=== PATIENT | male | born 1975 | race Caucasian/White ===

== ENCOUNTER 2020-11-27 18:54 | Emergency (ER) | payer BC, OTHER, SELFPAY ==
[2020-11-27 19:30] VITALS: BP 150/83; PULSE 73; RESP 18; TEMP 36.8; O2SAT 97; BMI 31.7
[2020-11-27] MEDS: Tetracaine HCl/PF 0.5% Oph Sol 4 ML DROPS 3 DROP EYE-BOTH (20:58)
[2020-11-27] MEDS: Fluorescein Sodium STRIP 1 STRIP EYE-BOTH (20:58)
--- NOTE | 2020-11-27 21:26 | ED_ITS ---
HPI - Eye Problem General Chief complaint: Eye Problems Stated complaint: metal in eye Time Seen by Provider: 11/27/20 20:52 Source: patient Mode of arrival: ambulatory Limitations: no limitations History of Present Illness HPI Narrative: Was doing some core work and grinding and some metal went into his left eye even though he has safety glasses on. Patient denies any blurry vision. Related Data Previous Rx's Medication Instructions Recorded erythromycin 0.5 inch OPHTHALMIC (EYE) QID 7 11/27/20 Days #50 g naproxen 500 mg PO BID PRN #20 tab 11/27/20 Allergies Allergy/AdvReac Type Severity Reaction Status Date / Time No Known Allergies Allergy Verified 11/27/20 19:30 Review of Systems Review of Systems: Yes all other systems are reviewed and are negative Constitutional: Constitutional: Reports as per HPI and Reports no additional constitutional complaints Eyes: Eyes: Reports as per HPI and Reports no additional eye complaints Comments: Right eye redness. Metal in eye ENT: Reports system reviewed and no additional complaints, except as documented and Reports as per HPI Cardiovascular: Cardiovascular: Reports as per HPI and Reports no additional cardiovascular complaints Respiratory: Respiratory: Reports as per HPI and Reports no additional respiratory complaints Gastrointestinal: Gastrointestinal: Reports as per HPI and Reports no additional gastrointestinal complaints Genitourinary: Genitourinary: Reports no additional male genitourinary complaints and Reports as per HPI Musculoskeletal: Musculoskeletal: Reports no additional musculoskeletal complaints and Reports as per HPI Neurologic: Reports system reviewed and no additional complaints, except as documented and Reports as per HPI Psychiatric: Psychiatric: Reports no additional psychiatric complaints and Reports as per HPI [facility] Past Medical History Medical History (Updated 11/28/20 @ 00:01 by Pj Campos) No known health problems Social History Social History Alcohol intake: never Smoked in Last 30 Days: No Use of substances other than those prescribed or required for medical reasons: No Any prior treatment program specific to substance use: No Advance Directives: No Advance Directives Information Provided: Yes Physical Exam Vital Signs: Vital Signs: Last Vital Signs Temp 98.2 F 11/27/20 19:30 Pulse 73 11/27/20 19:30 Resp 18 11/27/20 19:30 BP 150/83 H 11/27/20 19:30 Pulse Ox 97 11/27/20 19:30 Body Mass Index 31.7 Const: General: cooperative, healthy appearing, comfortable, no acute distress, well developed, alert, awake and Physically active Orientation/consciousness: patient oriented x3 HENMT: Head: Yes normal to inspection, Yes No palpable skull fracture present, Yes normocephalic and Yes atraumatic Eyes: Other: Right are normal. Left eye; positive for erythema of conjunctiva. positive for small foreign body on left 1'oclock position of iris. Flourscein dye used and negative for corneal abrasion. Negative for signs of globe rupture Neck: Neck: Yes normal visual inspection, Yes full ROM, Yes no lymphadenopathy, Yes no meningeal signs, Yes trachea midline, Yes supple and No tender Chest: Chest palpation & inspection: normal inspection of the chest and normal palpation of entire chest wall Resp: Effort & Inspection: normal respiratory effort and able to speak in complete sentences Auscultation: clear to auscultation bilaterally Cardio: Jugular venous distension: no JVD Heart sounds: S1 normal heart sound present and S2 normal heart sound present GI: Inspection: Yes normal to inspection and No abdominal wall ecchymosis Palpation (GI): Soft to palpation, not firm, nontender, no guarding and not rigid : General: No CVA tenderness and Yes no CVA tenderness Back/Spine/Pelvis: Back: no CVA tenderness, No CVA tenderness and No back tenderness Skin: General skin exam: no rashes or lesions noted and elasticity normal Neuro: General: patient oriented x3, no meningeal signs and CN's II-XI intact bilaterally Cranial nerves: Yes CN's II-XII intact bilaterally Extrem: General: Yes normal to inspection and Yes full ROM Psych: Appearance: grossly normal, well kempt and not disheveled Course Course Course Narrative: Will do exam. Reevaluation(s) Reevaluation #1: Positive for small object upper iris. Some of the metal were removed but some part of the metal remain on the iris after multiple attempts. Patient states this occurred yesterday. Patient states up-to-date with tetanus. Tetracaine was used to numb the eye. On fluorescein dye was placed in the eye. Negative for corneal abrasion. Negative for leaking to indicate globe rupture. Right eye visual acuity 20/20. Left eye visual acuity 20/40. Patient will be discharged with erythromycin. Patient informed tomorrow to call scanning supervisor for follow-up. Discharge Plan Discharge Clinical Impression: Foreign body in eye Patient Disposition: Home, Self-Care Instructions: Eye Foreign Body (ED) Additional Instructions: Return to the ED immediately for worsening eye pain, swelling, redness, pus discharge, loss of vision, change in vision, or any other concerning symptoms Prescriptions: New erythromycin 5 mg/gram (0.5 %) ointment 0.5 inch ophthalmic (eye) QID 7 Days Qty: 50 RF: 0 naproxen 500 mg tablet 500 mg PO BID PRN (Reason: pain) Qty: 20 RF: 0 Referrals: Negro Messer [Physician] - 2 days (Left eye corneal foreign body ( metal) retained. ) Stand Alone Forms: Work/School Release Interventions: ED Discharge Assessment Last Done: 11/27/20 21:49 Discharge Date/Time: 11/27/20 21:40 Print Language: Citizen Of [place]
== END 2020-11-27 21:40 | disposition home or self-care (01) ==
PROVIDERS: Emergency Provider Emergency Medicine
DX: H57.12 Ocular pain, left eye (principal); T15.02XA Foreign body in cornea, left eye, initial encounter; H44.6 Retained (old) intraocular foreign body, magnetic; X58.XXXA Exposure to other specified factors, initial encounter; Y93.9 Activity, unspecified; Y92.9 Unspecified place or not applicable; Y99.0 Civilian activity done for income or pay; Z79.899 Other long term (current) drug therapy
CPT/HCPCS: 65220; 99284

== ENCOUNTER 2023-04-09 15:39 | Outpatient (AMB) | payer OTHER, SELFPAY ==
[2023-04-09 15:45] VITALS: BP 126/82; PULSE 67; O2SAT 98; BMI 33.7
--- NOTE | 2023-04-09 15:45 | A.OFFPC_ITS ---
Vital Signs 04/09/23 15:45 Height 5 ft 9 in Weight 228 lb BMI 33.7 BP 126/82 Blood Pressure Location Lt brachial Position Sitting Pulse 67 Pulse Source Pulse Oximeter Pulse Oximetry (%) 98 Oxygen Delivery Method Room Air Intake Visit Reasons: new patient follow up Associate Research Scientist Required: No Allergies shrimp Allergy (Intermediate, Verified 04/09/23 16:18) Anaphylaxis Medication List - Last Reconciled 04/09/23 by MANNY Crawford No Known Home Meds Tobacco use date assessed: 04/09/23 Dental Screening Dental Screen Date: 04/09/23 Did you have a dental visit in the last 12 months?: Yes Did you have a dental problem in the last 6 months where you did not have access to dental care?: No Was dental information given to patient?: Patient has dentist HPI new patient follow up HPI Details Patient is a 47-year-old male who presents today to [facility] care. Reports previous PCP more than 10 years ago. Medical history significant for obesity. Patient reports tetanus vaccine in 2008 and he would like to hold off on the vaccine today. Eye exam 10/2022. Up-to-date with dentist visit. Today we discussed patient's need for colon cancer screening. 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 Denies concerns at this visit. [facility] Medical History Knee pain, right No known health problems Surgical History No pertinent past surgical history Family History Mother No problems noted. Father No problems noted. Social History Housing: Apartment Alcohol intake: never Patient Tobacco Use Status: Never used Tobacco service: No Current occupational status: employed Cognitive needs: No Hearing needs: No Vision needs: No Questionnaire PHQ-9 Over the last 2 weeks, how often have you been bothered by any of the following problems? 1. Little interest or pleasure in doing things: not at all 2. Feeling down, depressed, or hopeless: not at all 3. Trouble falling or staying asleep, or sleeping too much: not at all 4. Feeling tired or having little energy: not at all 5. Poor appetite or overeating: not at all 6. Feeling bad about yourself - or that you are a failure or have let yourself or your family down: not at all 7. Trouble concentrating on things, such as reading the newspaper or watching television: not at all 8. Moving or speaking so slowly that other people could have noticed. Or the opposite - being so fidgety or restless that you have been moving around a lot more than usual: not at all 9. Thoughts that you would be better off or of hurting yourself in some way: not at all Total score: 0 Depression Screening Interpretation: Negative 45207 - PHQ-9 Billing: Yes Source: Developed by Drs. Ilia Avila, Kenyon Martínez and colleagues, with an educational kian from [employer] AUDIT C Alcohol Use Questionnaire (AUDIT-C) 1. How often do you have a drink containing alcohol?: Never 3. How often do you have six or more drinks on one occasion?: Never Total Score: 0 Score Reviewed/Action Taken: No LINDSAY-7 AMB Questionnaire LINDSAY-7 Date LINDSAY - 7 assessed: 04/09/23 Feeling nervous, anxious, or on edge: 0 = Not at all Not being able to stop or control worryin = Not at all Worrying too much about different things: 0 = Not at all Trouble relaxin = Not at all Being so restless that it is hard to sit still: 0 = Not at all Becoming easily annoyed or irritable: 0 = Not at all Feeling afraid as if something awful might happen: 0 = Not at all Total LINDSAY-7 score (0-4 normal; 5-9 mild; 10-14 moderate; 15-21 severe): 0 Source: Developed by Drs. Ilia Avila, Kenyon Martínez and colleagues, with an educational kian from [employer] LINDSAY-7 Assessment Billing LINDSAY-7 Assessment Tool: LINDSAY-7 Assessment 29479 Review of Systems Const Denies body aches, Denies chills, Denies fever(s) and Denies headache(s) Eyes Denies blurry vision and Denies change in vision ENT Denies dizziness, Denies otalgia, Denies headache(s), Denies nasal discharge, Denies sinus pain and Denies sore throat Card Denies chest pain, Denies edema, Denies lightheadedness and Denies dyspnea Resp Denies cough, Denies dyspnea and Denies wheezing GI Denies abdominal pain, Denies constipation, Denies diarrhea, Denies nausea and Denies vomiting Denies hematuria, Denies difficulty urinating, Denies dysuria and Denies flank pain Musc Denies myalgias Skin/Breast Denies lesions and Denies rash Neuro Denies dizziness and Denies headache(s) Aller/Immun Denies wheezing Physical exam (Primary Care) Vital Signs: Last Vital Signs Pulse 67 04/09/23 15:45 BP 126/82 04/09/23 15:45 Pulse Ox 98 04/09/23 15:45 Oxygen Delivery Method Room Air 04/09/23 15:45 BMI result Body Mass Index 33.7 Tobacco/Smoking Status: Tobacco use Status Tobacco use date assessed 04/09/23 04/09/23 15:48 Patient Tobacco Use Status Never used Tobacco 04/09/23 15:45 PHQ-9: PHQ-9 Score PHQ-9: Total score 0 04/09/23 16:24 Depression Screening Interpretation: Negative Const General: cooperative and no acute distress Orientation/consciousness: patient oriented x3 HENMT Head: Yes normocephalic and Yes atraumatic Ears: TM's normal bilaterally Face and sinus: Yes sinuses nontender Mouth: oropharynx normal and moist mucous membranes Throat: Yes posterior oropharynx normal Eyes General: appearance normal, both eyes and all related structures Pupils: Equal, round and reactive pupils present EOM: EOMs intact bilaterally Neck Neck: Yes normal visual inspection, Yes full ROM and Yes no lymphadenopathy Thyroid: Thyroid normal Resp Effort & Inspection: normal respiratory effort and able to speak in complete sentences Auscultation: clear to auscultation bilaterally, no crackles, no rales, no rhonchi and no wheezes Cardio Rate: regular rate Rhythm: regular rhythm Heart sounds: S1 normal heart sound present, S2 normal heart sound present and no murmurs GI Palpation (GI): Soft to palpation, not firm, nontender, no guarding, not rigid and no hepatosplenomegaly Auscultation: normal bowel sounds General: No CVA tenderness Back/Spine/Pelvis Back: No CVA tenderness Skin General skin exam: no rashes or lesions noted Neuro General: patient oriented x3 Cranial nerves: Yes Equal, round and reactive pupils present Gait exam (Neuro): Normal gait present Extrem General: Yes full ROM and No edema Assessment and Plan Assessment & Plan (1) Screening for colon cancer: Code(s): Z12.11 - Encounter for screening for malignant neoplasm of colon (2) Encounter to establish care: Code(s): Z76.89 - Persons encountering health services in other specified circumstances Plan: Patient presents to establish care Blood work ordered (3) Obesity (BMI 30.0-34.9): Code(s): E66.9 - Obesity, unspecified Plan: Healthy food choices and exercise as tolerated Orders: Orders Vitamin B12 and Folate 04/09/23 Z - Persons encountering health services in other specified circumstances Comprehensive Hurricane. Panel Fast 04/09/23 Z76. - Persons encountering health services in other specified circumstances Lipid Panel 04/09/23 Z. - Persons encountering health services in other specified circumstances TSH reflex Free T4 04/09/23 Z76. - Persons encountering health services in other specified circumstances Vitamin D 25-OH Total 04/09/23 Z76.89 - Persons encountering health services in other specified circumstances Complete Blood Count Auto Diff 04/09/23 Z76. - Persons encountering health services in other specified circumstances Referrals Open Access Screening Colonoscopy Referral Z12.11 - Encounter for screening for malignant neoplasm of colon, Z12.12 - Encounter for screening for malignant neoplasm of rectum Coding Level of Care Code New Pt Level 3 (25813) Diagnoses Screening for colon cancer Z12.11 Encounter to establish care Z. Obesity (BMI 30.0-34.9) E66.9 Additional Codes LINDSAY-7 Assessment Billing - LINDSAY-7 Assessment Tool: LINDSAY-7 Assessment 28483 ([id number])
== END 2023-04-09 16:34 | disposition home or self-care (01) ==
PROVIDERS: Visit Provider Nurse Practitioner Family
DX: E66.9 Obesity, unspecified (principal); Z12.11 Encounter for screening for malignant neoplasm of colon; Z76.89 Persons encountering health services in other specified circumstances; Z68.33 Body mass index [BMI] 33.0-33.9, adult
CPT/HCPCS: 99203

== ENCOUNTER 2023-10-03 02:47 | Emergency (ER) | payer OTHER, SELFPAY ==
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
[2023-10-03 03:09] VITALS: BP 149/89; PULSE 109; RESP 18; TEMP 36.7; O2SAT 95; BMI 34.0
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
--- NOTE | 2023-10-03 04:34 | PC.NURSE ---
pt head cleaned with iodine pt tolerated well pt ambulatory at discharge pt partner present. pt provided with discharge packet pt verbalized understanding of discharge plan
== END 2023-10-03 04:40 | disposition home or self-care (01) ==
PROVIDERS: Emergency Provider Internal Medicine
DX: S09.90XA Unspecified injury of head, initial encounter (principal); Y04.2XXA Assault by strike against or bumped into by another person, initial encounter; Y93.9 Activity, unspecified; Y92.9 Unspecified place or not applicable; Y99.8 Other external cause status
CPT/HCPCS: 70450; 99284